=== PATIENT | male | born 1945 | race Caucasian/White ===

== ENCOUNTER → 2022-04-19 13:50 | Outpatient (BNVA) | payer MEDICARE, OTHER, SELFPAY | PROVIDERS: PCP Internal Medicine; Visit Provider Psychiatry & Neurology Psychiatry | DX: F32.4 Major depressive disorder, single episode, in partial remission (principal) | CPT/HCPCS: 90833; 99212 ==

== ENCOUNTER → 2022-10-12 12:11 | Outpatient (BNVA) | payer MEDICARE, OTHER, SELFPAY | PROVIDERS: PCP Internal Medicine; Visit Provider Psychiatry & Neurology Psychiatry | DX: F32.4 Major depressive disorder, single episode, in partial remission (principal); I10 Essential (primary) hypertension | CPT/HCPCS: 90833; 99212 ==

== ENCOUNTER 2023-04-25 13:39 | Outpatient (REF) | payer MEDICARE, OTHER, SELFPAY ==
[2023-04-25 15:55] LABS: Alanine Aminotransferase 16 U/L (0-40); Albumin Level 4.2 g/dL (3.5-5.0); Alkaline Phosphatase 79 U/L (39-117); Anion Gap 11 (12-20); Aspartate Amino Transferase 21 U/L (5-37); Bilirubin Total 0.2 mg/dL (0.0-1.0); Blood Urea Nitrogen 15 mg/dL (9-16); Calcium 9.4 mg/dL (8.4-10.2); Carbon Dioxide 27 mmol/L (22-29); Chloride 109 mmol/L (96-108); Estimated Glomerular Filt Rate > 60; Glucose Random 91 mg/dL (60-115); Potassium 4.4 mmol/L (3.3-5.1); Sodium 143 mmol/L (135-145); Total Protein 6.6 g/dL (6.5-8.0)
[2023-04-25 16:11] LABS: TSH reflex Free T4 1.57 uIU/mL (0.32-4.0)
[2023-04-25 16:25] LABS: Folate 15.8 ng/mL (> or = 4.0); Vitamin B12 < 148 pg/mL (200-900)
== END 2023-04-25 13:40 | disposition home or self-care (01) ==
LOC: HO.LAB 13:39
PROVIDERS: PCP Internal Medicine; Visit Provider Psychiatry & Neurology Psychiatry
DX: F32.4 Major depressive disorder, single episode, in partial remission (principal); I10 Essential (primary) hypertension; R41.89 Other symptoms and signs involving cognitive functions and awareness
CPT/HCPCS: 36415; 80053; 82607; 82746; 84443; 90833; 99212

== ENCOUNTER 2023-04-25 13:39 | Outpatient (AMB) | payer MEDICARE, OTHER, SELFPAY ==
--- NOTE | 2023-04-25 13:45 | A.OFFPSYCH_ITS ---
Intake Intake Visit Reasons: depression Allergies nortriptyline Adverse Reaction (Verified 04/19/22 13:45) Back Pain Medication List - Last Reconciled 04/25/23 by Jl Leong MD atorvastatin 20 mg PO DAILY levomefolate calcium (L-Methylfolate) 15 mg PO DAILY lisinopril 10 mg PO DAILY venlafaxine ER 150 mg PO DAILY HPI- Psychiatric Chief Complaint: depression HPI Narrative: The pt feels generally okay. He was concerned about some cognitive slowing perhaps is some mild dysphoria an concerns regarding motivation general functioning. There was some consideration of him moving to [place] to be closer with his daughter he does lament held tones in the summer he lives in [place] Past Psychiatric History: hx depression longstanding with anxiety Mental Status Exam Mental Status Exam Narrative: Mental Status Exam Narrative: Appearance: Casually dressed Behavior: Cooperative appropriate psychomotor: Within normal limits Speech: Normal volume and prosody Thought proccess logical and goal-directed Thought content: Future oriented no self-harming thoughts mild negative self perceptions future anxiety Mood: Generally euthymic mild dysphoria Affect: Appropriate to mood full affect SI:denies HI:denies VH/AH:none Delusions: None Insight/judgment: Good insight and judgment Memory/cog: Intact as test Assessment and Plan Assessment & Plan (1) Major depression in partial remission: Status: Acute Code(s): F32.4 - Major depressive disorder, single episode, in partial remission (2) Essential hypertension: Status: Acute Code(s): I10 - Essential (primary) hypertension (3) Cognitive changes: Status: Acute Code(s): R41.89 - Other symptoms and signs involving cognitive functions and awareness Plan pt does notice some cognitive dulling aging check B12 folate TSH Orders: Orders Vitamin B12 and Folate 04/25/23 I10 - Essential (primary) hypertension, R41.89 - Other symptoms and signs involving cognitive functions and awareness Comprehensive Met. Panel 04/25/23 I10 - Essential (primary) hypertension TSH reflex Free T4 04/25/23 I10 - Essential (primary) hypertension, R41.89 - Other symptoms and signs involving cognitive functions and awareness Counseling and coordination of Care Details: I spent [] minutes reviewing the record, seeing the patient and documenting in the medical record. Counseling provided to the patient/caregiver as outlined below. Addressed patient/caregiver concerns regarding current medication regime including effective adherence. Addressed patient/caregiver concerns regarding diagnosis and prognosis including accuracy of diagnosis, prognosis over time, impact of diagnosis. Addressed patient/caregiver concerns regarding impact of recent stressors. [facility] Medical History (Updated 04/25/23 @ 14:23 by Jl Leong MD) Major depression in partial remission Borderline hypercholesterolemia Essential hypertension Social History: 1 daughter retired civilian jail officer mother depressive father anxiety dx 1 sister Substance History: hx of alc abuse Trauma History: was bullied grade school Coding Level of Care Code Est Pt Level 3 (97410) Therapy 30m w/E&M (47980) Diagnoses Major depression in partial remission F32.4 Essential hypertension I10 Cognitive changes R41.89
== END 2023-04-25 16:47 | disposition home or self-care (01) ==
LOC: HO.HOP 13:39
PROVIDERS: PCP Internal Medicine; Visit Provider Psychiatry & Neurology Psychiatry
DX: F32.4 Major depressive disorder, single episode, in partial remission (principal); I10 Essential (primary) hypertension; R41.89 Other symptoms and signs involving cognitive functions and awareness
CPT/HCPCS: 90833; 99213

== ENCOUNTER 2023-07-19 13:41 | Outpatient (REF) | payer MEDICARE, OTHER, SELFPAY ==
[2023-07-19 14:58] LABS: MANUAL DIFF FLAG NO
[2023-07-19 15:12] LABS: Eosinophils Absolute Auto 0.2 X10*3/uL (0.0-0.4); Eosinophils Percent Auto 4.2 % (0-4); Hematocrit 46.3 % (42.0-52.0); Imm Gran Abs Auto 0.01 X10*3/uL (0.00-0.03); Imm Gran Pct Auto 0.2 % (0.0-0.4); Lymphocytes Percent Auto 23.7 % (20-40); Mean Corpuscular HGB Conc 32.4 g/dl (31.0-36.0); Mean Corpuscular Hemoglobin 28.4 pg (27.0-33.0); Mean Corpuscular Volume 87.5 fL (80.0-98.0); Mean Platelet Volume 10.5 fL (9.4-12.4); Monocytes Absolute Auto 0.6 X10*3/uL (0.1-1.2); Monocytes Percent Auto 14.7 % (2-11); Neutrophils Absolute Auto 2.3 x10*3/uL (2.0-8.3); Neutrophils Percent Auto 56.2 % (45-73); Platelet Count 248 X10*3/uL (160-400); Red Blood Count 5.29 X10*6/uL (4.60-5.80); Red Cell Distribution Width 13.3 % (11.0-16.0); White Blood Count 4.1 X10*3/uL (4.8-10.8)
[2023-07-19 16:18] LABS: Folate 15.7 ng/mL (> or = 4.0); Vitamin B12 191 pg/mL (200-900)
[2023-07-20 12:09] LABS: Lyme Abs Screen <0.90 index
== END 2023-07-19 13:42 | disposition home or self-care (01) ==
LOC: HO.LAB 13:41
PROVIDERS: PCP Internal Medicine; Visit Provider Psychiatry & Neurology Psychiatry
DX: R41.89 Other symptoms and signs involving cognitive functions and awareness (principal)
CPT/HCPCS: 36415; 82607; 82746; 85025; 86617; 86618; 99212

== ENCOUNTER 2023-07-19 13:41 | Outpatient (AMB) | payer MEDICARE, OTHER, SELFPAY ==
--- NOTE | 2023-07-19 13:50 | MHC.OFFVISPS ---
Intake Intake Visit Reasons: depression Allergies nortriptyline Adverse Reaction (Verified 04/19/22 13:45) Back Pain HPI- Psychiatric Chief Complaint: depression HPI Narrative: Patient seen psychiatric follow-up. His mood has generally been okay somewhat slower in physical activity and completing tasks. He had been thinking of moving closer to his daughter possibly periods of dysphoria but limited he does c/o slowed thinkingh acting act times no basic change in fx Past Psychiatric History: hx depression longstanding with anxiety Mental Status Exam Mental Status Exam Narrative: Mental Status Exam Narrative: Appearance: Casually dressed Behavior: Cooperative appropriate psychomotor: Within normal limits Speech: Normal volume and prosody Thought proccess logical and goal-directed Thought content: Future oriented no self-harming thoughts mild negative self perceptions future anxiety Mood: Generally mild dysphoria Affect: Appropriate to mood somewhat flat SI:denies HI:denies VH/AH:none Delusions: None Insight/judgment: Generally good Memory/cog: Intact as test somewhat slowed o x4 jacobo good Assessment and Plan Assessment & Plan (1) Major depression in partial remission: Status: Acute Code(s): F32.4 - Major depressive disorder, single episode, in partial remission (2) Cognitive changes: Status: Acute Code(s): R41.89 - Other symptoms and signs involving cognitive functions and awareness (3) Essential hypertension: Status: Acute Code(s): I10 - Essential (primary) hypertension (4) B12 deficiency: Status: Acute Code(s): E53.8 - Deficiency of other specified B group vitamins Plan extensive discussion re possibility of b12 contributing to mood difficulties cognitive difficulties labs were sent to pcp again would reevaluate after replacement no pernicious anemia neuropathy apparent discussed factors to lng term brain health cont effexor pt had tried to dec c dose had inc sx ck labs lyme consder neuro pych mri etc ? l methyl folate after b12 replacement pt to call pcp ? cyano cobalamin inj Medications: New mecobalamin (vitamin B12) allow to dissolve in mouth OR may chew lightly before swallowing 1,000 mcg PO DAILY 60 ea 0RF 30 days Orders: Orders Complete Blood Count Auto Diff 07/19/23 R41.89 - Other symptoms and signs involving cognitive functions and awareness Lyme IgG/IgM w/reflex to WB 07/19/23 R41.89 - Other symptoms and signs involving cognitive functions and awareness Vitamin B12 and Folate 07/19/23 R41.89 - Other symptoms and signs involving cognitive functions and awareness Counseling and coordination of Care Details: I spent [] minutes reviewing the record, seeing the patient and documenting in the medical record. Counseling provided to the patient/caregiver as outlined below. Addressed patient/caregiver concerns regarding current medication regime including effective adherence. Addressed patient/caregiver concerns regarding diagnosis and prognosis including accuracy of diagnosis, prognosis over time, impact of diagnosis. Addressed patient/caregiver concerns regarding impact of recent stressors. 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
== END 2023-07-19 14:47 | disposition home or self-care (01) ==
LOC: HO.HOP 13:41
PROVIDERS: PCP Internal Medicine; Visit Provider Psychiatry & Neurology Psychiatry
DX: F32.4 Major depressive disorder, single episode, in partial remission (principal); R41.89 Other symptoms and signs involving cognitive functions and awareness; I10 Essential (primary) hypertension; E53.8 Deficiency of other specified B group vitamins
CPT/HCPCS: 90833; 99214

== ENCOUNTER 2023-11-22 13:40 | Outpatient (AMB) | payer MEDICARE, OTHER, SELFPAY ==
--- NOTE | 2023-11-22 14:10 | MHC.OFFVISPS ---
Intake Intake Visit Reasons: depression Allergies nortriptyline Adverse Reaction (Verified 04/19/22 13:45) Back Pain HPI- Psychiatric Chief Complaint: depression HPI Narrative: Patient seen psychiatric follow-up patient has been on B12 replacement does feel more alert cognitively improved. He has been rehabbing some of his house prior to spending time at his house in [place] patient generally stable on Effexor doing better at higher dose and B12 replacement He does know he has some dulling and slowing Past Psychiatric History: hx depression longstanding with anxiety Mental Status Exam Mental Status Exam Narrative: Mental Status Exam Narrative: Appearance: Casually dressed Behavior: Cooperative appropriate psychomotor: Within normal limits Speech: Normal volume and prosody Thought proccess logical and goal-directed Thought content: Future oriented no self-harming thoughts mild negative self perceptions future anxiety Mood: Generally mild dysphoria Affect: Appropriate to mood somewhat flat SI:denies HI:denies VH/AH:none Delusions: None Insight/judgment: Generally good Memory/cog: Intact as test somewhat slowed o x4 jacobo good Assessment and Plan Assessment & Plan (1) B12 deficiency: Status: Acute Code(s): E53.8 - Deficiency of other specified B group vitamins (2) Cognitive changes: Status: Acute Code(s): R41.89 - Other symptoms and signs involving cognitive functions and awareness (3) Major depression in partial remission: Status: Acute Code(s): F32.4 - Major depressive disorder, single episode, in partial remission (4) Borderline hypercholesterolemia: Status: Acute Code(s): E78.00 - Pure hypercholesterolemia, unspecified Plan Continue plan of care B12 replacement try and limit self self punitive judgment. Encourage ongoing socialization Exercise behavioral activation discussed long-term brain health ways to maintain functioning Counseling and coordination of Care Pt. Self Management counseling: Exercise, Light exposure and Behavior activation Details-Self Mgmt counseling: Patient also to follow-up with his PCP Medication management counseling: Effectiveness, Side effects and Dosing range Diagnosis and Prognosis Counseling: Adequacy of current interventions Details: I spent [38] minutes reviewing the record, seeing the patient and documenting in the medical record. Counseling provided to the patient/caregiver as outlined below. Addressed patient/caregiver concerns regarding current medication regime including effective adherence. Addressed patient/caregiver concerns regarding diagnosis and prognosis including accuracy of diagnosis, prognosis over time, impact of diagnosis. Addressed patient/caregiver concerns regarding impact of recent stressors. 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
== END 2023-11-22 14:45 | disposition home or self-care (01) ==
LOC: HO.HOP 13:40
PROVIDERS: PCP Internal Medicine; Visit Provider Psychiatry & Neurology Psychiatry
DX: F32.4 Major depressive disorder, single episode, in partial remission (principal); R41.89 Other symptoms and signs involving cognitive functions and awareness; E53.8 Deficiency of other specified B group vitamins; E78.00 Pure hypercholesterolemia, unspecified
CPT/HCPCS: 90833; 99213

== ENCOUNTER → 2023-11-22 13:40 | Outpatient (BNVA) | payer MEDICARE, OTHER, SELFPAY | PROVIDERS: PCP Internal Medicine; Visit Provider Psychiatry & Neurology Psychiatry | DX: F32.4 Major depressive disorder, single episode, in partial remission (principal); R41.89 Other symptoms and signs involving cognitive functions and awareness; E78.00 Pure hypercholesterolemia, unspecified; E53.8 Deficiency of other specified B group vitamins | CPT/HCPCS: 99212 ==

== ENCOUNTER 2024-04-17 11:36 | Outpatient (AMB) | payer MEDICARE, OTHER, SELFPAY ==
--- NOTE | 2024-04-17 11:45 | A.OFFPSYCH_ITS ---
Intake Intake Visit Reasons: depression Allergies nortriptyline Adverse Reaction (Verified 04/19/22 13:45) Back Pain Medication List - Last Reconciled 04/17/24 by Jl Leong MD atorvastatin 20 mg PO DAILY levomefolate calcium (L-Methylfolate) 15 mg PO DAILY lisinopril 10 mg PO DAILY mecobalamin (vitamin B12) 1,000 mcg PO DAILY 30 days venlafaxine ER 150 mg PO DAILY HPI- Psychiatric Chief Complaint: depression HPI Narrative: Pt seen in f/u mood somehat melancholy generally stable . The patient's family suffered the recent of his son-in-law who had suddenly committed suicide. This was obviously quite difficult for his daughter and family to deal with. Patient in general has been doing on okay on 150 mg he is cognitively better more alert less cognitively dulled since being on B12 replacement. Generally doing ok feels mostly stable Future oriented can focus will use light box in fall Past Psychiatric History: hx depression longstanding with anxiety Mental Status Exam Mental Status Exam Narrative: Mental Status Exam Narrative: Appearance: Casually dressed Behavior: Cooperative appropriate psychomotor: Within normal limits Speech: Normal volume and prosody Thought proccess logical and goal-directed Thought content: Future oriented no self-harming thoughts Mood: Generally ok recent sadness Affect: Appropriate to mood somewhat flat SI:denies HI:denies VH/AH:none Delusions: None Insight/judgment: Generally good Memory/cog: alert and oriented no gross deficits Assessment and Plan Assessment & Plan (1) Major depression in partial remission: Status: Acute Code(s): F32.4 - Major depressive disorder, single episode, in partial remission (2) Essential hypertension: Status: Acute Code(s): I10 - Essential (primary) hypertension (3) Borderline hypercholesterolemia: Status: Acute Code(s): E78.00 - Pure hypercholesterolemia, unspecified (4) B12 deficiency: Status: Acute Code(s): E53.8 - Deficiency of other specified B group vitamins Plan discussed ways to stay healthy with aging walking brain activities cont effexor discussed issues related to recent suicide by s in law has been supportive to his daughter. urged regular light box exercise f/u 4 months Counseling and coordination of Care Pt. Self Management counseling: Exercise, Maintenance-social rhythm and Behavior activation Details-Self Mgmt counseling: issues related to of his s in law and helping his daughter Medication management counseling: Effectiveness, Side effects, Dosing range and Drug interaction Diagnosis and Prognosis Counseling: Accuracy of diagnosis, Prognosis over time, Impact of diagnosis on life functions and Problematic behaviors secondary to diagnosis Details: I spent [44] minutes reviewing the record, seeing the patient and documenting in the medical record. Counseling provided to the patient/caregiver as outlined below. Addressed patient/caregiver concerns regarding current medication regime including effective adherence. Addressed patient/caregiver concerns regarding diagnosis and prognosis including accuracy of diagnosis, prognosis over time, impact of diagnosis. Addressed patient/caregiver concerns regarding impact of recent stressors. 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
== END 2024-04-17 12:25 | disposition home or self-care (01) ==
LOC: HO.HOP 11:37
PROVIDERS: PCP Internal Medicine; Visit Provider Psychiatry & Neurology Psychiatry
DX: F32.4 Major depressive disorder, single episode, in partial remission (principal); I10 Essential (primary) hypertension; E78.00 Pure hypercholesterolemia, unspecified; E53.8 Deficiency of other specified B group vitamins
CPT/HCPCS: 90833; 99213

== ENCOUNTER → 2024-04-17 11:36 | Outpatient (BNVA) | payer MEDICARE, OTHER, SELFPAY | PROVIDERS: PCP Internal Medicine; Visit Provider Psychiatry & Neurology Psychiatry | DX: F32.4 Major depressive disorder, single episode, in partial remission (principal); I10 Essential (primary) hypertension; E78.00 Pure hypercholesterolemia, unspecified; E53.8 Deficiency of other specified B group vitamins; Z71.89 Other specified counseling | CPT/HCPCS: 99212 ==

== ENCOUNTER 2024-08-29 13:43 | Outpatient (AMB) | payer MEDICARE, OTHER, SELFPAY ==
--- NOTE | 2024-08-29 13:51 | MHC.OFFVISPS ---
Intake Intake Visit Reasons: depression Allergies nortriptyline Adverse Reaction (Verified 04/19/22 13:45) Back Pain Medication List - Last Reconciled 08/29/24 by Jl Leong MD atorvastatin 20 mg PO DAILY levomefolate calcium (L-Methylfolate) 15 mg PO DAILY lisinopril 10 mg PO DAILY mecobalamin (vitamin B12) 1,000 mcg PO DAILY 30 days venlafaxine ER 150 mg PO DAILY HPI- Psychiatric Chief Complaint: depression HPI Narrative: Pt seen in psych f/u mood has been ok he is worried cognitively at times with complex decisions does appear to fluctuate gave taxes to cpa and in past would do himself some difficulty in concentration sleeping ok does have some rem sleep and nightares patient has not been overly depressed he does feel he is becoming slower physically and cognitively. He remains on oral B12 replacement he was B12 deficient in the past. Patient is alert oriented generally not getting lost or disoriented. He is fixing up his house and spends part of the year in [place] and part of the year in [place] Past Psychiatric History: hx depression longstanding with anxiety Mental Status Exam Mental Status Exam Narrative: Mental Status Exam Narrative: Appearance: Casually dressed Behavior: Cooperative appropriate psychomotor: Mildly slowed Speech: Normal volume and prosody Thought proccess logical and goal-directed Thought content: Future oriented no self-harming thoughts somewhat concerned regarding his physical and cognitive state Mood: Generally ok recent sadness Affect: Appropriate to mood somewhat flat SI:denies HI:denies VH/AH:none Delusions: None Insight/judgment: Generally good Memory/cog: alert and oriented no gross deficits Assessment and Plan Assessment & Plan (1) Major depression in partial remission: Status: Acute Code(s): F32.4 - Major depressive disorder, single episode, in partial remission (2) Mild cognitive impairment: Status: Acute Code(s): G31.84 - Mild cognitive impairment of uncertain or unknown etiology Plan Patient does seem to be having cognitive slowing difficulty with concentration. Strongly suggested P patient take a senior vitamin and to recheck B vitamin levels also suggested possibility of having neuropsych evaluation at neuropsychologist and also discussed ways to maintain brain health including socialization some form of regular exercise treatment for hypertension high cholesterol blood sugar. Continue Effexor follow-up to 3 months consider Namenda/citocholine trying getting recent labs that patient had. There is some degree of apathy. Patient denies drinking more than 1 drink occasionally Medications: Refilled venlafaxine ER 150 mg PO DAILY 90 caps 1RF Counseling and coordination of Care Details-Self Mgmt counseling: Making sure patient takes care of his medical health follow-up with PCP consider neuropsych testing discussed with patient daily exercise could be walk Increase in behavior/socialization Medication management counseling: Effectiveness, Side effects and Dosing range Diagnosis and Prognosis Counseling: Accuracy of diagnosis, Impact of diagnosis on life functions and Adequacy of current interventions Details: I spent [40] minutes reviewing the record, seeing the patient and documenting in the medical record. Counseling provided to the patient/caregiver as outlined below. Addressed patient/caregiver concerns regarding current medication regime including effective adherence. Addressed patient/caregiver concerns regarding diagnosis and prognosis including accuracy of diagnosis, prognosis over time, impact of diagnosis. Addressed patient/caregiver concerns regarding impact of recent stressors. 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
== END 2024-08-29 14:22 | disposition home or self-care (01) ==
LOC: HO.HOP 13:43
PROVIDERS: PCP Family Medicine; Visit Provider Psychiatry & Neurology Psychiatry
DX: F32.4 Major depressive disorder, single episode, in partial remission (principal); G31.84 Mild cognitive impairment of uncertain or unknown etiology
CPT/HCPCS: 90833; 99213

== ENCOUNTER → 2024-08-29 13:43 | Outpatient (BNVA) | payer MEDICARE, OTHER, SELFPAY | PROVIDERS: PCP Family Medicine; Visit Provider Psychiatry & Neurology Psychiatry | DX: F32.4 Major depressive disorder, single episode, in partial remission (principal); G31.84 Mild cognitive impairment of uncertain or unknown etiology | CPT/HCPCS: 99212 ==

== ENCOUNTER 2024-11-13 13:56 | Outpatient (AMB) | payer MEDICARE, OTHER, SELFPAY ==
--- NOTE | 2024-11-13 14:34 | MHC.OFFVISPS ---
Intake Intake Visit Reasons: depression Allergies nortriptyline Adverse Reaction (Verified 04/19/22 13:45) Back Pain Medication List - Last Reconciled 11/13/24 by Jl Leong MD atorvastatin 20 mg PO DAILY levomefolate calcium (L-Methylfolate) 15 mg PO DAILY lisinopril 10 mg PO DAILY mecobalamin (vitamin B12) 1,000 mcg PO DAILY 30 days venlafaxine ER 150 mg PO DAILY HPI- Psychiatric Chief Complaint: depression HPI Narrative: Patient seen psychiatric follow-up. Some periods of mild melancholy some degree of cognitive slowing. B12 a few months ago had been decreased B12 replacement has continued orallyPt has cont on effexor 150 mg Pt has been dealing with the of his son-in-law grief and loss regarding this he is plan to go up to [place] as per usual. He is more social he states in [place] and he is down here generally Past Psychiatric History: hx depression longstanding with anxiety Mental Status Exam Mental Status Exam Narrative: Mental Status Exam Narrative: Appearance: Casually dressed Behavior: Cooperative appropriate psychomotor: Mildly slowed Speech: Normal volume and prosody Thought proccess logical and goal-directed Thought content: Future oriented somewhat negativistic about his future and thought concerned regarding his physical and cognitive state Mood: Generally ok recent sadness regarding loss of his son-in-law Affect: Appropriate to mood somewhat flat SI:denies HI:denies VH/AH:none Delusions: None Insight/judgment: Generally good Memory/cog: alert and oriented no gross deficits Assessment and Plan Assessment & Plan (1) Major depression in partial remission: Status: Acute Code(s): F32.4 - Major depressive disorder, single episode, in partial remission (2) Essential hypertension: Status: Acute Code(s): I10 - Essential (primary) hypertension (3) Borderline hypercholesterolemia: Status: Acute Code(s): E78.00 - Pure hypercholesterolemia, unspecified (4) B12 deficiency: Status: Acute Code(s): E53.8 - Deficiency of other specified B group vitamins (5) Mild cognitive impairment: Status: Acute Code(s): G31.84 - Mild cognitive impairment of uncertain or unknown etiology Plan Ongoing cognitive concerns have offered neuropsych testing he does take L methyl folate supplement in addition to B12 have discussed with him there are earlier treatments for MCI early Alzheimer continue venlafaxine check B12 folate intrinsic factor high profile CBC parietal cell antibody Medications: Refilled venlafaxine ER 150 mg PO DAILY 90 caps 1RF Orders: Orders Vitamin B12 and Folate 11/13/24 F32.4 - Major depressive disorder, single episode, in partial remission, E53.8 - Deficiency of other specified B group vitamins, R41.89 - Other symptoms and signs involving cognitive functions and awareness Intrinsic Factor Antibodies 11/13/24 F32.4 - Major depressive disorder, single episode, in partial remission, E53.8 - Deficiency of other specified B group vitamins, R41.89 - Other symptoms and signs involving cognitive functions and awareness IRON PROFILE 11/13/24 F32.4 - Major depressive disorder, single episode, in partial remission, E53.8 - Deficiency of other specified B group vitamins, R41.89 - Other symptoms and signs involving cognitive functions and awareness Complete Blood Count Man Dif 11/13/24 F32.4 - Major depressive disorder, single episode, in partial remission, E53.8 - Deficiency of other specified B group vitamins, R41.89 - Other symptoms and signs involving cognitive functions and awareness Parietal Cell Antibody 11/13/24 F32.4 - Major depressive disorder, single episode, in partial remission, E53.8 - Deficiency of other specified B group vitamins, R41.89 - Other symptoms and signs involving cognitive functions and awareness Counseling and coordination of Care Pt. Self Management counseling: Behavior activation and Cognitive restructuring Details-Self Mgmt counseling: Discussed issues related to aging cognitive impairment potential evaluation need to maintain socialization excise ways to maintain healthy brain including focused lipids hypertension Medication management counseling: Effectiveness, Side effects and Dosing range Details: I spent [] minutes reviewing the record, seeing the patient and documenting in the medical record. Counseling provided to the patient/caregiver as outlined below. Addressed patient/caregiver concerns regarding current medication regime including effective adherence. Addressed patient/caregiver concerns regarding diagnosis and prognosis including accuracy of diagnosis, prognosis over time, impact of diagnosis. Addressed patient/caregiver concerns regarding impact of recent stressors. 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
== END 2024-11-13 15:48 | disposition home or self-care (01) ==
LOC: HO.HOP 13:56
PROVIDERS: PCP Family Medicine; Visit Provider Psychiatry & Neurology Psychiatry
DX: F32.4 Major depressive disorder, single episode, in partial remission (principal); I10 Essential (primary) hypertension; E78.00 Pure hypercholesterolemia, unspecified; E53.8 Deficiency of other specified B group vitamins; G31.84 Mild cognitive impairment of uncertain or unknown etiology
CPT/HCPCS: 99214

== ENCOUNTER 2024-11-13 13:56 | Outpatient (REF) | payer MEDICARE, OTHER, SELFPAY ==
[2024-11-13 15:50] LABS: Baso%MD 0.8 %; Eos%MD 2.1 %; Hematocrit 45.1 % (42.0-52.0); Hemoglobin 15.2 g/dl (14.0-18.0); IG%MD 0.2 %; Lymph%MD 14.4 %; Mean Corpuscular HGB Conc 33.7 g/dl (31.0-36.0); Mean Corpuscular Hemoglobin 29.2 pg (27.0-33.0); Mean Corpuscular Volume 86.7 fL (80.0-98.0); Mean Platelet Volume 10.8 fL (9.4-12.4); Mono%MD 12.7 %; Neut%MD 69.8 %; Platelet Count 282 X10*3/uL (160-400); Red Cell Distribution Width 13.7 % (11.0-16.0); White Blood Count 4.9 X10*3/uL (4.8-10.8)
[2024-11-13 16:15] LABS: Iron 115 mcg/dL (45-160); Percent Iron Saturation 50 % (15-50); Total Iron Binding Capacity 232 mcg/dL (228-428); Unsaturated Iron Binding 117 ug/dL
[2024-11-13 16:34] LABS: Atypical Lymph Absolute Manual 0.2 x10*3/uL; Atypical Lymphs Percent Manual 5 % (0-6); Band Neutrophils Percent 3 % (3-5); Eosinophils Absolute Manual 0.1 X10*3/uL (0.0-0.4); Eosinophils Percent Manual 2 % (0-4); Lymphocytes Percent Manual 20 % (20-40); Monocytes Absolute Manual 0.7 X10*3/uL (0.1-1.2); Monocytes Percent Manual 15 % (2-11); Neutrophils Absolute Manual 2.8 X10*3/uL (2.0-8.3); Neutrophils Percent Manual 55 % (45-73)
[2024-11-13 16:35] LABS: Burr Cells 3+ (>5) /OIF; Ovalocytes 1+ (5-14) /OIF; RBC Morphology NOTED
[2024-11-13 16:36] LABS: Large Platelet PRESENT; Platelet Estimate NORMAL (NORMAL); Platelet Morphology Comment NOTED; Schistocytes 1+ (0-2) /OIF
[2024-11-13 17:02] LABS: Folate > 20.0 ng/mL (> or = 4.0); Vitamin B12 489 pg/mL (200-900)
[2024-11-16 21:03] LABS: Intrinsic Factor Antibodies Negative (Negative)
[2024-11-17 16:54] LABS: Parietal Cell Antibody <=20.0 Unit (<=20.0)
== END 2024-11-13 13:57 | disposition home or self-care (01) ==
LOC: HO.LAB 13:56
PROVIDERS: PCP Family Medicine; Visit Provider Psychiatry & Neurology Psychiatry
DX: F32.4 Major depressive disorder, single episode, in partial remission (principal); E53.8 Deficiency of other specified B group vitamins; R41.89 Other symptoms and signs involving cognitive functions and awareness
CPT/HCPCS: 36415; 82607; 82746; 83516; 83540; 85007; 85027; 86340; 99212